=== PATIENT | female | born 1955 | race Caucasian/White ===

== ENCOUNTER → 2017-01-23 | Outpatient (CLI) | payer BC ==
--- NOTE | 2017-01-23 11:18 | P.STRESS ---
- Stress Test Note Stress Test Results/Findings: Exam Performed: MA stress cardiolite complete Exam Date: 01/23/17 Height: 5 ft 5 in Weight: 98.883 kg Protocol: Zaid Cardiolite Stage: 2 Duration of Exercise: 8:08 Resting Heart Rate: 69 Resting Blood Pressure: 153/88 Maximum Achieved Heart Rate: 150 Maximum Achieved Blood Pressure: 191/81 85% PMHR: 134 100% PMHR: 158 METS: 9.7 Technologist Comment: Stress Test Results/Findings: Baseline rhythm is sinus mechanism, minor nonspecific ST T wave changes. Patient exercised on Zaid protocol for 8 minutes and 8 seconds. The heart rate 150 bpm which is equal to 94% maximum predicted heart rate. Peak blood pressure 191/81 mmHg, test was terminated secondary to fatigue. Patient had sharp chest discomfort that was atypical for ischemia. EKG monitoring showed rare PVCs there was no evidence of diagnostic ischemic ST-T wave changes. Cardiolite was injected at peak exercise. Impression: 1. Average exercise tolerance with chest discomfort at peak exercise that was atypical for ischemia. 2. Normal EKG response to exercise. 3. Nuclear images will be reported separately.
--- NOTE | 2017-01-23 11:56 | NM ---
EXAMINATION TYPE: NM stress cardiolite complete DATE OF EXAM: 01/23/2017 COMPARISON: NONE HISTORY: Chest pain, dyspnea, and abnormal EKG per order. History of hypertension and hypercholestero lemia per patient. TECHNIQUE: After the intravenous administration of 10.75 mCi Tc 99m Sestamibi - Rest images obtained 45 minutes post injection. The patient exercised using a TYLER protocol and 1 minute prior to peak exercise was injected with 28.1 mCi Tc 99m Sestamibi - Stress images obtained 10 minutes post inject ion. FINDINGS: Targeted heart rate was achieved during performance of the study. Review of stress and rest SPECT marin ges demonstrates no distinct perfusion abnormality. Gated analysis shows normal wall motion with an estimated left ventricular ejection fraction of 72 %. IMPRESSION: No convincing scintigraphic evidence for reversible ischemia.
--- NOTE | 2017-01-23 12:12 | EST ---
Stress Test Results/Findings: Exam Performed: MI stress cardiolite complete Exam Date: 01/23/17 Height: 5 ft 5 in Weight: 98.883 kg Protocol: Zaid Cardiolite Stage: 2 Duration of Exercise: 8:08 Resting Heart Rate: 69 Resting Blood Pressure: 153/88 Maximum Achieved Heart Rate: 150 Maximum Achieved Blood Pressure: 191/81 85% PMHR: 134 100% PMHR: 158 METS: 9.7 Technologist Comment: Stress Test Results/Findings: Baseline rhythm is sinus mechanism, minor nonspecific ST T wave changes. Patient exercised on Zaid protocol for 8 minutes and 8 seconds. The heart rate 150 bpm which is equal to 94% maximum predicted heart rate. Peak blood pressure 191/81 mmHg, test was terminated secondary to fatigue. Patient had sharp chest discomfort that was atypical for ischemia. EKG monitoring showed rare PVCs there was no evidence of diagnostic ischemic ST-T wave changes. Cardiolite was injected at peak exercise. Impression: 1. Average exercise tolerance with chest discomfort at peak exercise that was atypical for ischemia. 2. Normal EKG response to exercise. 3. Nuclear images will be reported separately. LAUREN
== END | disposition home or self-care (01) ==
LOC: RADNMMAIN 07:43
PROVIDERS: ATTEND Internal Medicine
DX: I99.8 Other disorder of circulatory system (principal); R07.89 Other chest pain
CPT/HCPCS: 93017; 78452; A9500

== ENCOUNTER → 2023-05-14 | Outpatient (CLI) | payer MEDICARE | END | disposition home or self-care (01) | LOC: RADMRIMAIN 16:24 | PROVIDERS: ATTEND Psychiatry & Neurology Neurology | DX: Z53.9 Procedure and treatment not carried out, unspecified reason (principal) ==

== ENCOUNTER → 2023-05-17 | Outpatient (CLI) | payer MEDICARE ==
--- NOTE | 2023-05-17 19:29 | MR ---
EXAMINATION TYPE: MR lumbar spine wo/w con DATE OF EXAM: 05/17/2023 4:54 PM CLINICAL INDICATION:Female, 67 years old with history of M54.40 LUMBAGO WITH SCIATICA, Meningioma, Lo w back pain that radiates down both legs COMPARISON: None TECHNIQUE: Multi planar, multi sequence imaging was performed utilizing: T1-weighted, T2-weighted, a nd turbo inversion recovery imaging of the lumbar spine. IV Contrast: 9.5 cc Gadavist. (None if empty) FINDINGS: Alignment: The lumbar vertebral bodies have preserved heights and alignment. Cord: The conus medullaris and the distal spinal cord appear unremarkable with regards to their signa l intensity and morphology. There is a homogenously enhancing intradural extra medullary dural-based lesion measuring up to 14 x 10 mm at the level of the L1 superior endplate which displaces the cauda equina and conus medullaris laterally to the left. Bones/Discs: Multilevel degeneration changes with scattered vertebral body focal fat versus vertebral body hemangiomas. Degeneration worse at L5-S1 with Modic endplate changes, osteophytes and disc spac e narrowing and facet joint arthropathy. There are perineural cysts at the level of S2 bilaterally me asuring up to 14 mm on the left and 10 mm on the right. Pseudoarthrosis of the spinous processes. The re is some enhancement near the spinous processes of L1-L4. T12-L1: No evidence of significant spinal canal stenosis or neural foraminal stenosis. L1-L2: No evidence of significant spinal canal stenosis or neural foraminal stenosis. L2-L3: Disc bulge and facet joint arthropathy result in mild spinal canal and mild bilateral neural f oraminal stenosis. L3-L4: Disc bulge and facet joint arthropathy result in mild spinal canal and mild to moderate right and moderate left bilateral neural foraminal stenosis. L4-L5: Disc bulge and facet joint arthropathy result in mild spinal canal and moderate bilateral neur al foraminal stenosis. L5-S1: The disc is rounded posterior morphology without significant spinal canal stenosis. Facet join t arthropathy with moderate right and mild left bilateral neural foraminal stenosis. No significant spinal canal or neural foraminal stenosis in the remainder of the visualized levels. Other findings: None. IMPRESSION: 1. Suspected meningioma at the level of the superior endplate of L1 adjoining up to 14 x 11 mm it di splaces the conus medullaris laterally to the left. At least moderate spinal canal stenosis at this l evel. 2. No definitive evidence of disc herniation. 3. Mild to moderate disc degeneration with associated osteoarthritic changes. 4. Findings suggestive of Baastrup's disease with some enhancement near the adjoining spinous proces ses scattered throughout the lumbar spine.
== END | disposition home or self-care (01) ==
LOC: RADMRIMAIN 15:58
PROVIDERS: ATTEND Psychiatry & Neurology Neurology
DX: M48.061 Spinal stenosis, lumbar region without neurogenic claudication (principal); M51.16 Intervertebral disc disorders with radiculopathy, lumbar region; M47.26 Other spondylosis with radiculopathy, lumbar region
CPT/HCPCS: 72158; A9585

== ENCOUNTER → 2024-02-21 | Outpatient (CLI) | payer MEDICARE ==
--- NOTE | 2024-03-19 11:56 | MR ---
Site ID synapse default Patient Sravanthi Ba ID [id number] Age/Gender: 68Y, F Order # N/A Procedure MR lumbar wo/w con Date 02/21/2024 12:52:39 PM EXAMINATION TYPE: MR lumbar spine wo/w con DATE OF EXAM: 02/29/2024 COMPARISON: MRI lumbar spine 05/17/2023 HISTORY: Follow-up benign neoplasm spinal meninges. TECHNIQUE: Multiplanar, multisequence images of the lumbar spine were acquired without and with 9.5 mL intraveno us Gadavist gadolinium contrast. FINDINGS: Alignment: The lumbar vertebral bodies have preserved heights and alignment. Cord: The conus medullaris and the distal spinal cord appear unremarkable with regards to their signa l intensity and morphology. Stable homogenously enhancing intradural extra medullary posterior latera l broad dural-based lesion measuring up to 17 x 10 mm at the level of the L1 superior endplate (serie s 801, image 11) which displaces the cauda equina and conus medullaris laterally to the left. This de monstrates a dural tail and is T1 isointense/T2 isointense. Bones/Discs: Multilevel degeneration changes with scattered vertebral body focal fat versus vertebral body hemangiomas redemonstrated. Degeneration worse at L5-S1 with Modic endplate changes, osteophyte s and disc space narrowing and facet joint arthropathy. There are incidental Tarlov cysts in the bila teral neural foramen from L2 through L4 and on the right at L5. Additionally seen bilaterally at the S2 level. Pseudoarthrosis of the spinous processes. There is some enhancement near the spinous proces ses of L1-L4 again. T12-L1: Broad-based disc bulge without significant central canal stenosis. Bilateral facet arthropath y and no significant neural foraminal stenosis. L1-L2: Broad-based disc bulge without significant central canal stenosis. Bilateral facet arthropathy and no significant neural foraminal stenosis. L2-L3: Broad-based disc bulge without significant central canal stenosis. Bilateral facet arthropathy and no significant neural foraminal stenosis. L3-L4: Broad-based disc bulge with ligamentum flavum buckling and bilateral facet arthropathy contrib uting to mild central canal stenosis. Mild bilateral neural foraminal stenosis. L4-L5: Broad-based disc bulge with ligamentum flavum buckling and bilateral facet arthropathy contrib uting to minimal central canal narrowing. Moderate right and minimal left neural foraminal stenosis. L5-S1: The disc is rounded posterior morphology without significant spinal canal stenosis. Facet join t arthropathy with mild left neuroforaminal stenosis. The right neural foramen is patent. Other findings: T2 hyperintense 5 mm probable right renal cyst. IMPRESSION: 1. Stable probable meningioma at the level of the superior endplate of L1 with similar displacement o f the conus medullaris laterally to the left. At least moderate spinal canal stenosis at this level a gain. 2. No definitive evidence of disc herniation. 3. Mild disc degeneration with associated osteoarthritic changes redemonstrated. 4. Findings suggestive of Baastrup's disease again. 5. Multiple incidental Tarlov cysts.
== END | disposition home or self-care (01) ==
LOC: RADMRIMAIN 13:30
PROVIDERS: ATTEND Neurological Surgery
DX: D32.1 Benign neoplasm of spinal meninges (principal); G96.191 Perineural cyst; M48.061 Spinal stenosis, lumbar region without neurogenic claudication; M51.36 Other intervertebral disc degeneration, lumbar region
CPT/HCPCS: 72158; A9585